=== PATIENT | male | born 1985 | race Hispanic/Latino ===

== ENCOUNTER 2018-11-21 18:22 | Emergency (ER) | payer SELFPAY ==
[2018-11-21] MEDS ORDERED: Adacel (T-DAP) 0.5 ML SYRINGE ONE (21:04)
== END 2018-11-21 21:34 | disposition home or self-care (01) ==
LOC: ERS 18:22
DX: S01.111A Laceration without foreign body of right eyelid and periocular area, initial encounter (principal); R04.0 Epistaxis
CPT/HCPCS: 90471; 90715

== ENCOUNTER 2023-04-21 19:37 | Emergency (ER) | payer SELFPAY ==
[2023-04-21 20:51] LABS: #Eosinphils 0.1 thou/uL (0.0-0.7); #Monocytes 0.8 thou/uL (0.11-0.59); #Neutrophils 5.6 thou/uL (1.40-6.50); %Basophils 0.4 % (0.0-1.0); %Eosinophils 0.6 % (0.0-10.0); %Lymphocytes 16.9 % (21.0-51.0); %Monocytes 10.4 % (0.0-10.0); %Neutrophils 71.1 % (42.0-75.0); Hematocrit 43.1 % (42.0-52.0); Hemoglobin 14.6 g/dL (14.0-18.0); Mean Corpuscular HGB CONC 33.9 g/dL (32.0-36.0); Mean Corpuscular Hemoglobin 28.6 pg (27.0-31.0); Mean Corpuscular Volume 84.3 fl (78.0-98.0); Mean Platelet Volume 12.6 fL (7.4-10.4); Platelet Count 163 10x3/uL (130-400); RBC Distribution Width 12.1 % (11.5-14.5); Red Blood Cell (RBC) Count 5.11 mill/uL (4.70-6.10); White Blood Cell (WBC) Count 7.9 10x3/uL (4.8-10.8)
[2023-04-21 21:14] LABS: ALT (SGPT) 19 U/L (8-55); AST (SGOT) 15 U/L (5-34); Albumin 4.1 g/dL (3.5-5.0); Alkaline Phosphatase 52 U/L (40-110); Anion Gap 11 mmol/L (10-20); BUN (Urea Nitrogen) 24 mg/dL (8.9-20.6); Bilirubin, Total 0.4 mg/dL (0.2-1.2); Calc. Creatinine Clearance 0 mL/min (70-130); Carbon Dioxide 24 mmol/L (22-29); Chloride 102 mmol/L (98-107); Estimated GFR 33; Globulin 2.7 g/dL (2.4-3.5); Glucose 103 mg/dL (70-105); Lipase 24 U/L (8-78); Potassium 4.4 mmol/L (3.5-5.1); Protein, Total 6.8 g/dL (6.0-8.3); Sodium 133 mmol/L (136-145)
[2023-04-21 21:30] LABS: Bacteria/HPF None Seen HPF (None Seen); Bilirubin Negative (Negative); Blood, Urine Trace (Negative); CAUTI Indications for Culture < 2yrs of age; Clarity Clear (Clear); Glucose, Urine (Dipstick) Normal (Negative); Ketone, Urine Negative (Negative); Leukocyte Negative Leu/uL (Negative); Nitrite Negative (Negative); Protein, Urine (Dipstick) 10 mg/dL (Neg-Trace); RBC/HPF 0-3 HPF (0-3); Specific Gravity, Urine 1.006 (1.002-1.036); Squamous Epithelial None Seen HPF (0-3); Urobilinogen Normal mg/dL (Less than 2); WBC/HPF 0-3 HPF (0-3); pH, Urine 5.5 (5.0-9.0)
[2023-04-21 21:32] LABS: Urine Culture Reflex Yes Yes
[2023-04-21] MEDS ORDERED: Dicyclomine 20 MG TAB ONE (22:07)
[2023-04-21] MEDS ORDERED: Famotidine/PF 20 mg/2ml Vial ONE (22:11)
[2023-04-21 23:25] LABS: Troponin I Less than 0.010 ng/mL (< 0.028)
== END 2023-04-21 23:32 | disposition home or self-care (01) ==
LOC: ERS 19:37
DX: R10.13 Epigastric pain (principal); N18.9 Chronic kidney disease, unspecified
CPT/HCPCS: 71045; 74176; 80053; 81001; 83690; 84484; 85025; 87086; 93005; 96374; S0028